=== PATIENT | female | born 1985 | race Caucasian/White ===

== ENCOUNTER 2017-08-30 20:36 | Emergency (ER) | payer BC, OTHER ==
[~2017-08-30] VITALS: Ht 167.6 cm; Wt 47.2 kg
[2017-08-30 20:45] VITALS: BP 105/64
[2017-08-30] MEDS ORDERED: IBUPROFEN 600 MG TABLET PO ONE ×2 (21:16→21:30)
== END 2017-08-30 22:09 | disposition home or self-care (01) ==
LOC: ER 20:42
DX: S92.531A Displaced fracture of distal phalanx of right lesser toe(s), initial encounter for closed fracture (principal); Z88.2 Allergy status to sulfonamides; W22.01XA Walked into wall, initial encounter; Y93.89 Activity, other specified; Y92.89 Other specified places as the place of occurrence of the external cause; Y99.8 Other external cause status
CPT/HCPCS: 73660-TC; A4606; Z7610

== ENCOUNTER 2019-04-26 22:08 | Emergency (ER) | payer OTHER ==
[~2019-04-26] VITALS: Ht 162.6 cm; Wt 50.8 kg
[2019-04-26] MEDS ORDERED: ONDANSETRON HCL/PF 4 MG/2 ML VIAL ONE (22:20)
[2019-04-26] MEDS ORDERED: MORPHINE SULFATE INJ 4 MG/ML DISP.SYRIN ONE (22:20)
[2019-04-26 22:27] VITALS: BP 130/102
[2019-04-26 22:27] LABS: BASOPHILS # (AUTO) 0.1 /CMM (0.0-0.2); BASOPHILS % (AUTO) 0.5 % (0.0-2.0); EOSINOPHILS % (AUTO) 0.9 % (0.0-6.0); HEMATOCRIT 44 % (33-45); HEMOGLOBIN 14.4 g/dL (11.5-14.8); LYMPHOCYTES # (AUTO) 5.7 /CMM (0.8-4.8); LYMPHOCYTES % (AUTO) 48.8 % (20.0-44.0); MEAN CORPUSCULAR HGB CONC 33 g/dl (31.0-36.0); MEAN CORPUSCULAR VOLUME 95 fL (82-100); MONOCYTES # (AUTO) 0.5 /CMM (0.1-1.30); MONOCYTES % (AUTO) 4.5 % (2.0-12.0); NEUTROPHILS # (AUTO) 5.3 /CMM (1.8-8.9); NEUTROPHILS % (AUTO) 45.3 % (43.0-81.0); PLATELET COUNT (AUTO) 372 /CMM (150-450); RED BLOOD CELL COUNT(AUTO) 4.59 MIL/uL (4.0-5.2); WHITE BLOOD COUNT (AUTO) 11.7 K/uL (4.3-11.0)
--- NOTE | 2019-04-26 22:28 | NUR ---
PT AAOX4. AMBULATORY BIBHUSBAND C/O RLQ PAIN 10/ [place]. PLACED ON MONITOR AND PULSE OX. AWAITING MD FOR EVAL. PT STATED "OUT OF NO WHERE I GOT PAIN"
[2019-04-26] MEDS ORDERED: ONDANSETRON HCL/PF 4 MG/2 ML VIAL IVP ONE (22:30)
[2019-04-26] MEDS ORDERED: IV NS 0.9% 1,000 ML BAG IV ONE (22:30)
[2019-04-26] MEDS ORDERED: MORPHINE SULFATE INJ 2 MG/ML DISP.SYRIN IV ONE (22:30)
[2019-04-26 22:35] LABS: CALCIUM, SERUM 9.6 mg/dL (8.5-10.1); CREATININE 0.8 mg/dL (0.6-1.3); POTASSIUM 4.5 mmol/L (3.5-5.1)
[2019-04-26 22:41] LABS: ALBUMIN 4.1 g/dL (3.4-5.0); BILIRUBIN,DIRECT 0.1 mg/dL (0.0-0.2); BILIRUBIN,TOTAL 0.3 mg/dL (0.2-1.0); TOTAL PROTEIN, SERUM 7.6 g/dL (6.4-8.2)
[2019-04-26] MEDS ORDERED: HYDROMORPHONE INJ 2 MG/ML DISP.SYRIN ONE (22:55)
[2019-04-26] MEDS ORDERED: HYDROMORPHONE INJ 2 MG/ML DISP.SYRIN IV ONE (23:00)
--- NOTE | 2019-04-26 23:26 | NUR ---
PT BROUGHT TO CT
--- NOTE | 2019-04-27 01:02 | NUR ---
[facility] NUMBER [phone]
--- NOTE | 2019-04-27 02:55 | NUR ---
PT ACCEPTED BY DR GUTIÉRREZ AT [facility] BED [id number]. # FOR REPORT [phone]. PENDING TRANSPORT ETA
--- NOTE | 2019-04-27 03:16 | NUR ---
[facility] ETA 45 MINUTES
--- NOTE | 2019-04-27 04:10 | NUR ---
[facility] AT BEDSIDE FOR TRANSPORT.
== END 2019-04-27 04:15 | disposition short-term general hospital (02) ==
LOC: ER 22:09
DX: K56.699 Other intestinal obstruction unspecified as to partial versus complete obstruction (principal); R11.2 Nausea with vomiting, unspecified; Z88.2 Allergy status to sulfonamides
CPT/HCPCS: 36415; 74176; 80048; 80076; 83690; 85025; 96361; 96374; 96375; 99285; J1170; J2270; J2405; J7030

== ENCOUNTER 2021-07-21 14:13 | Emergency (ER) | payer OTHER ==
[~2021-07-21] VITALS: Ht 167.6 cm; Wt 47.6 kg
--- NOTE | 2021-07-21 14:45 | NUR ---
BIB SELF C/O LEFT FLANK PAIN. AMBULATORY, IN PAIN 01/26
--- NOTE | 2021-07-21 14:50 | NUR ---
URINE SAMPLE SENT TO LAB
--- NOTE | 2021-07-21 14:55 | NUR ---
ON BED SIDE
[2021-07-21] MEDS ORDERED: MORPHINE SULFATE INJ 2 MG/ML DISP.SYRIN IV ONE (15:00)
[2021-07-21] MEDS ORDERED: IV NS 0.9% 1,000 ML BAG IV ONE (15:00)
[2021-07-21] MEDS ORDERED: ONDANSETRON HCL/PF 4 MG/2 ML VIAL IVP ONE (15:00)
[2021-07-21] MEDS ORDERED: ONDANSETRON HCL/PF 4 MG/2 ML VIAL ONE (15:08)
[2021-07-21] MEDS ORDERED: MORPHINE SULFATE INJ 4 MG/ML DISP.SYRIN ONE (15:08)
--- NOTE | 2021-07-21 15:10 | NUR ---
BLOOD DRAWN AND SENT TO LAB.
[2021-07-21 15:15] LABS: BASOPHILS # (AUTO) 0.1 K/uL (0.0-0.2); BASOPHILS % (AUTO) 0.7 % (0.0-2.0); EOSINOPHILS % (AUTO) 0.7 % (0.0-6.0); HEMATOCRIT 42 % (33-45); HEMOGLOBIN 14.1 g/dL (11.5-14.8); LYMPHOCYTES # (AUTO) 3.7 K/uL (0.8-4.8); LYMPHOCYTES % (AUTO) 45.1 % (20.0-44.0); MEAN CORPUSCULAR HGB CONC 34 g/dl (31.0-36.0); MEAN CORPUSCULAR VOLUME 96 fL (82-100); MONOCYTES # (AUTO) 0.3 K/uL (0.1-1.30); MONOCYTES % (AUTO) 4.2 % (2.0-12.0); NEUTROPHILS # (AUTO) 4.1 K/uL (1.8-8.9); NEUTROPHILS % (AUTO) 49.3 % (43.0-81.0); PLATELET COUNT (AUTO) 353 K/uL (150-450); RED BLOOD CELL COUNT(AUTO) 4.35 MIL/uL (4.0-5.2); WHITE BLOOD COUNT (AUTO) 8.3 K/uL (4.3-11.0)
[2021-07-21 15:36] LABS: BILIRUBIN,URINE NEGATIVE (NEGATIVE); COLOR,URINE YELLOW (YELLOW); LEUKOCYTE ESTERASE ,URINE NEGATIVE (NEGATIVE); NITRITE, URINE NEGATIVE (NEGATIVE); PROTEIN,URINE NEGATIVE (NEGATIVE); UGLUCOSE NEGATIVE (NEGATIVE); UROBILINOGEN,URINE 0.2 EU/dL (0.2)
[2021-07-21] MEDS ORDERED: HYDROMORPHONE 1 MG/1 ML DISP.SYRIN ONE (15:46)
[2021-07-21] MEDS ORDERED: HYDROMORPHONE INJ 2 MG/ML DISP.SYRIN IV ONE (16:00)
[2021-07-21 16:18] LABS: ALBUMIN 4.4 g/dL (3.4-5.0); BILIRUBIN,DIRECT 0.1 mg/dL (0.0-0.2); BILIRUBIN,TOTAL 0.4 mg/dL (0.2-1.0); CALCIUM, SERUM 9.3 mg/dL (8.5-10.1); CREATININE 0.6 mg/dL (0.6-1.3); POTASSIUM 3.9 mmol/L (3.5-5.1); TOTAL PROTEIN, SERUM 7.6 g/dL (6.4-8.2)
--- NOTE | 2021-07-21 16:20 | NUR ---
RAD. TECH. ON BED SIDE PATIENT FOR CT ABDOMEN.
[2021-07-21] MEDS ORDERED: HYDR-4303 PO (17:13)
[2021-07-21] MEDS ORDERED: CARI350T PO (17:13)
[2021-07-21 17:28] VITALS: BP 125/50
== END 2021-07-21 17:32 | disposition home or self-care (01) ==
LOC: ER 14:16
DX: R10.32 Left lower quadrant pain (principal); F17.200 Nicotine dependence, unspecified, uncomplicated; Z88.2 Allergy status to sulfonamides; Z79.891 Long term (current) use of opiate analgesic; Z79.899 Other long term (current) drug therapy
CPT/HCPCS: 36415; 74176; 80048; 80076; 81003; 83690; 84703; 85025; 87077; 87086; 87186; 96361; 96374; 96375; 99284; J1170; J2270; J2405; J7030

== ENCOUNTER → 2022-02-23 | Emergency (ER) | payer OTHER ==
[~2022-02-23] VITALS: Ht 162.6 cm; Wt 52.2 kg
[~2022-02-23] MED LIST: CARI350T PO; HYDR-4303 PO; IBUP-1955 PO; IV NS 0.9% 1,000 ML BAG IV ONE; KETOROLAC TROMETHAMINE 15 MG/ML VIAL ONE; KETOROLAC TROMETHAMINE INJ 30 MG/ML VIAL IV ONE; METOCLOPRAMIDE HCL 10 MG/2 ML VIAL IV ONE; METOCLOPRAMIDE HCL 10 MG/2 ML VIAL ONE; diphenhydrAMINE HCL 50 MG/ML VIAL IV ONE; diphenhydrAMINE HCL 50 MG/ML VIAL ONE
--- NOTE | 2022-02-23 15:30 | NUR ---
PERSISTENT DIZZINESS/CAN'T FOCUS/LOSS OF SENSE OF SMELL AND TASTE SINCE SHE HIT HER HEAD ADURING SYNCOPE 02/08/2022 SHE WAS SEEN AT [facility]
--- NOTE | 2022-02-23 15:40 | NUR ---
ESTABLISHED IV LINE AT LEFT AC 20 G, BLOOD SAMPLE OBTAINED SENT TO LAB
--- NOTE | 2022-02-23 17:15 | NUR ---
PT. SIGNED WAIVER
[2022-02-23 17:24] LABS: BASOPHILS # (AUTO) 0.1 K/uL (0.0-0.2); BASOPHILS % (AUTO) 0.8 % (0.0-2.0); EOSINOPHILS % (AUTO) 1.8 % (0.0-6.0); HEMATOCRIT 45 % (33-45); HEMOGLOBIN 15.1 g/dL (11.5-14.8); LYMPHOCYTES # (AUTO) 3.2 K/uL (0.8-4.8); MEAN CORPUSCULAR HGB CONC 34 g/dl (31.0-36.0); MEAN CORPUSCULAR VOLUME 97 fL (82-100); MONOCYTES # (AUTO) 0.4 K/uL (0.1-1.30); MONOCYTES % (AUTO) 5.8 % (2.0-12.0); NEUTROPHILS # (AUTO) 3.7 K/uL (1.8-8.9); NEUTROPHILS % (AUTO) 48.6 % (43.0-81.0); PLATELET COUNT (AUTO) 393 K/uL (150-450); RED BLOOD CELL COUNT(AUTO) 4.59 MIL/uL (4.0-5.2); WHITE BLOOD COUNT (AUTO) 7.5 K/uL (4.3-11.0)
[2022-02-23 17:34] LABS: CALCIUM, SERUM 9.6 mg/dL (8.5-10.1); CREATININE 0.8 mg/dL (0.6-1.3); POTASSIUM 4.1 mmol/L (3.5-5.1)
--- NOTE | 2022-02-23 17:42 | NUR ---
URINE SAMPLE OBTAINED SENT TO LAB
[2022-02-23 17:50] LABS: ALBUMIN 4.8 g/dL (3.4-5.0); BILIRUBIN,DIRECT 0.1 mg/dL (0.0-0.2); BILIRUBIN,TOTAL 0.5 mg/dL (0.2-1.0); TOTAL PROTEIN, SERUM 8.5 g/dL (6.4-8.2)
[2022-02-23 18:13] LABS: BILIRUBIN,URINE 1+ (NEGATIVE); COLOR,URINE YELLOW (YELLOW); LEUKOCYTE ESTERASE ,URINE NEGATIVE (NEGATIVE); NITRITE, URINE POSITIVE (NEGATIVE); PROTEIN,URINE NEGATIVE (NEGATIVE); UGLUCOSE NEGATIVE (NEGATIVE); UROBILINOGEN,URINE 0.2 EU/dL (0.2)
--- NOTE | 2022-02-23 18:31 | NUR ---
Patient discharged to home in stable condition. Written and verbal after care instructions given. Patient verbalizes understanding of instruction.
--- NOTE | 2022-02-23 18:31 | NUR ---
IV removed. Catheter intact and site benign. Pressure and 4x4 applied to site. No bleeding noted.
[2022-02-23 18:32] VITALS: BP 140/88
[2022-02-23 18:53] LABS: BACTERIA,URINE 4+ /HPF (None Seen); RBC,URINE 0-2 /HPF (0-2); WBC,URINE 0-2 /HPF (0-3)
== END | disposition home or self-care (01) ==
LOC: ER 15:08
DX: S06.0XAA Concussion with loss of consciousness status unknown, initial encounter (principal); Z88.2 Allergy status to sulfonamides; Z79.899 Other long term (current) drug therapy; X58.XXXA Exposure to other specified factors, initial encounter; Y93.89 Activity, other specified; Y92.89 Other specified places as the place of occurrence of the external cause; Y99.8 Other external cause status
CPT/HCPCS: 99285; 96374; 71045; 96375; 96361; 93005; 85025; 80048; 80076; 84703; 81001; 36415; 82962; J1200; J2765; J7030; J1885; 87086-TC

== ENCOUNTER 2023-09-03 09:00 | Emergency (ER) | payer BC, OTHER ==
[~2023-09-03] VITALS: Ht 167.6 cm; Wt 49.9 kg
[~2023-09-03 09:00] MED LIST changes: -IV NS 0.9% 1,000 ML BAG IV ONE; -KETOROLAC TROMETHAMINE 15 MG/ML VIAL ONE; -KETOROLAC TROMETHAMINE INJ 30 MG/ML VIAL IV ONE; -METOCLOPRAMIDE HCL 10 MG/2 ML VIAL IV ONE; -METOCLOPRAMIDE HCL 10 MG/2 ML VIAL ONE; -diphenhydrAMINE HCL 50 MG/ML VIAL IV ONE; -diphenhydrAMINE HCL 50 MG/ML VIAL ONE
[2023-09-03 09:10] VITALS: BP 107/80; TEMP 98.5
[2023-09-03] MEDS ORDERED: IBUP-1490 PO (09:42)
[2023-09-03 09:59] VITALS: O2SAT 99
== END 2023-09-03 10:00 | disposition home or self-care (01) ==
LOC: ER 09:08
DX: S62.326A Displaced fracture of shaft of fifth metacarpal bone, right hand, initial encounter for closed fracture (principal); Z88.2 Allergy status to sulfonamides; W22.8XXA Striking against or struck by other objects, initial encounter; Y93.89 Activity, other specified; Y92.89 Other specified places as the place of occurrence of the external cause; Y99.8 Other external cause status
CPT/HCPCS: 73130-TC